=== PATIENT | male | born 1980 | race Caucasian/White ===

== ENCOUNTER 2018-03-23 21:34 | Inpatient (IN) | payer OTHER ==
[~2018-03-23] VITALS: Ht 180.3 cm; Wt 75.7 kg
[2018-03-23] MEDS ORDERED: DIPHTH/TETANUS/ACEL PERTUSSIS (BOOSTER) 0.5 ML VIAL/PFS IM ONE (21:37)
[2018-03-23] MEDS ORDERED: ceFAZolin 2 GM PREMIX 50 ML ONE (21:37)
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
[2018-03-23 22:13] LABS: AUTOMATED NEUTROPHIL # 5.4 TH/MM3 (1.8-7.7); BASOPHIL # 0.1 TH/MM3 (0-0.2); EOSINOPHIL # 0.1 TH/MM3 (0-0.4); EOSINOPHIL % 1.2 % (0.0-4.0); HEMATOCRIT 36.1 % (39.0-51.0); HEMOGLOBIN 12.2 GM/DL (13.0-17.0); LYMPH % 27.5 % (9.0-44.0); LYMPHOCYTE # 2.5 TH/MM3 (1.0-4.8); MEAN CELL VOLUME 83.6 FL (80.0-100.0); MEAN CORPUSCULAR HEMOGLOBIN 28.3 PG (27.0-34.0); MEAN CORPUSCULAR HGB CONC 33.9 % (32.0-36.0); MEAN PLATELET VOLUME 7.8 FL (7.0-11.0); MONO % 10.6 % (0.0-8.0); NEUT % 59.7 % (16.0-70.0); PLATELET COUNT 304 TH/MM3 (150-450); RED BLOOD COUNT 4.32 MIL/MM3 (4.50-5.90); RED CELL DISTRIBUTION WIDTH 15.1 % (11.6-17.2); WHITE BLOOD COUNT 9.1 TH/MM3 (4.0-11.0)
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
[2018-03-23] MEDS ORDERED: IOHEXOL 350 MG/ML 10 ML VIAL (for RAD DIAG) IVCONTRAST ONE (22:29)
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
[2018-03-23 22:38] LABS: INTERNATIONAL NORMALIZED RATIO 1.1 RATIO; PROTHROMBIN TIME - PATIENT 11.3 SEC (9.8-11.6)
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
[2018-03-23] MEDS ORDERED: MORPHINE SULFATE 4 MG/ML INJ IV PUSH ONE (23:15)
[2018-03-23] MEDS ORDERED: HYDROmorphone HCL PF 1 MG/ML VIAL IV PUSH ONE (23:30)
[2018-03-23] MEDS ORDERED: diphenhydrAMINE HCL 50 MG/ML VIAL IV PUSH ONE (23:45)
[2018-03-23] MEDS ORDERED: HYDROmorphone HCL PF 2 MG/ML VIAL IV PUSH ONE (23:45)
[2018-03-24] VITALS: BP 137/68; PULSE 72; RESP 20; O2SAT 96
[2018-03-24] MEDS ORDERED: HYDROmorphone HCL PF 1 MG/ML VIAL IV PUSH PRN
[2018-03-24] MEDS ORDERED: ACETAMINOPHEN/HYDROcodone 325 MG/5 MG TAB PO PRN
[2018-03-24] MEDS ORDERED: SODIUM CHLORIDE 0.9% FLUSH 10 ML FLUSH IV FLUSH PRN
[2018-03-24] MEDS: SODIUM CHLOR 0.9% 1000 ML INJ 1,000 ML IV SCH ×2 (01:45→09:49)
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
[2018-03-24 06:48] VITALS: BP 132/66; PULSE 70; RESP 20; O2SAT 94
[2018-03-24] MEDS ORDERED: ONDANSETRON ODT 4 MG TAB PO PRN (07:00)
[2018-03-24] MEDS ORDERED: HYDROmorphone HCL PF 0.5 MG/0.5 ML SYRINGE IV PUSH PRN (08:45)
[2018-03-24] MEDS: SODIUM CHLORIDE 0.9% FLUSH 10 ML FLUSH IV FLUSH SCH ×2 (09:00→21:34)
[2018-03-24] MEDS ORDERED: FAMOTIDINE 20 MG/2 ML VIAL IV PUSH SCH (09:00)
[2018-03-24 09:04] VITALS: BP 168/77; PULSE 51; RESP 18; O2SAT 95
[2018-03-24] MEDS ORDERED: GENTAMICIN SULFATE 80 MG/2 ML VIAL ONE (10:51)
[2018-03-24] MEDS ORDERED: LIDOCAINE HCL 1% PF 5 ML SYRINGE OTHER ONE (12:00)
[2018-03-24] MEDS ORDERED: GLYCOPYRROLATE 1 MG/5 ML SYRINGE IV PUSH ONE (12:00)
[2018-03-24] MEDS ORDERED: PROPOFOL 200 MG/20 ML AMP IV ONE (12:00)
[2018-03-24] MEDS ORDERED: LACTATED RINGER'S 1000 ML INJ 1,000 ML IV ONE (12:00)
[2018-03-24] MEDS ORDERED: ROCURONIUM INJ 50 MG/5 ML SYRINGE IV PUSH ONE (12:00)
[2018-03-24] MEDS ORDERED: ONDANSETRON HCL 4 MG/2 ML VIAL IV ONE (12:00)
[2018-03-24] MEDS ORDERED: NEOSTIGMINE 5 MG/5 ML SYRINGE IV PUSH ONE (12:00)
[2018-03-24] MEDS ORDERED: VANCOMYCIN HCL 1000 MG VIAL ONE ×2 (12:55→15:18)
[2018-03-24] MEDS ORDERED: ceFAZolin 2 GM PREMIX 50 ML ONE ×2 (12:55→15:18)
[2018-03-24] MEDS ORDERED: ACETAMINOPHEN 1000 MG/100 ML 100 ML IV ONE (14:31)
[2018-03-24] MEDS ORDERED: HYDROmorphone HCL PF 2 MG/ML VIAL ONE (14:31)
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
[2018-03-24] MEDS ORDERED: DEXT 5%-NACL 0.45% 1000 ML INJ 1,000 ML IV SCH (15:01)
[2018-03-24] MEDS ORDERED: ENDO10TA8 PO (15:05)
[2018-03-24] MEDS ORDERED: ENOX40IN SQ (15:05)
[2018-03-24] MEDS ORDERED: ASPI-146 PO (15:05)
--- NOTE | 2018-03-24 15:07 | PD.OP ---
cc: Kodi Sánchez MD Operative Report Date of Surgery: March 24, 2018 Preoperative Diagnosis: Right comminuted tibia and fibula fracture Postoperative Diagnosis: Same Procedure: Right tibia fracture treatment with intramedullary nail Anesthesia: General Surgeon: Kodi Sánchez Skewer Up(s): WADR Jarrett The surgical procedure was assisted by my Advanced Registered Nurse Practitioner. My MARKETING SERVICES VICE PRESIDENT presence was necessary throughout this case for the manipulation and positioning of the surgical extremity. My MARKETING SERVICES VICE PRESIDENT was assisting me throughout the duration of this procedure. The skill set of an Advance Registered Nurse Practitioner was medically necessary to complete this procedure. During the surgical case, the assistant professor surgical technology was working at the back table and the Advance Registered Nurse Practitioner was directly assisting me. Operation and Findings: Implants: Synthes tibal nail, size: 9 x 3 60 Estimated blood loss: 100 cc The patient received intravenous vancomycin and Ancef. After the appropriate anesthesia was administered, the patient was prepped and draped in the supine position in the usual sterile fashion. Skin assessment showed no lacerations about the fracture site, but they are worse areas of abrasions but these were not full-thickness. There was mild swelling noted to the leg. We made incision proximal to the patella. We carefully dissected down to the quadriceps tendon. An in-line longitudinal split to the quadriceps tendon was completed. The capsule of the knee was entered. We placed the smooth trocar within the knee joint down to the proximal tibia, protecting the patella and trochlea during the case. We then reduced the tibia fracture manually and under fluoroscopic imaging. A ball-tipped guidewire was placed into the tibial shaft, passing the fracture site. This was placed down to the distal physeal line of the tibia. We then sequentially reamed the tibia to 1 mm larger than the implanted tibial nail. We obtained good cortical chatter. We measured the appropriate length for the tibial nail. We then passed the tibial nail into the medullary canal of the tibia. The nail was secured proximally with 1 screw(s), using the associated jig as a guide .We used the perfect robinson technique distally to visualize the distal tibial screw holes. We placed 3 screws distally. We thoroughly irrigated the incisions including a lavage of the arthrotomy site proximally. The quadriceps split was closed with a #1 Vicryl. The remaining incisions were closed with #2-0 Vicryl, followed by diane. A well-padded splint was required to provide further stabilization to the leg. The postoperative plan is for nonweightbearing. Chemical DVT prophylaxis will be performed with Lovenox followed by aspirin. Kodi Sánchez MD March 24, 2018 15:07
[2018-03-24] MEDS ORDERED: MIDAZOLAM HCL 2 MG/2 ML VIAL ONE (15:13)
[2018-03-24] MEDS ORDERED: NURSING INFORMATION XX PRN (15:15)
[2018-03-24] MEDS ORDERED: oxyCODONE/ACETAMINOPHEN 10 MG/325 MG TAB PO PRN (15:15)
[2018-03-24] MEDS ORDERED: MAGNESIUM HYDROXIDE SUSP 30 ML CUP PO PRN (15:15)
[2018-03-24] MEDS ORDERED: NALOXONE HCL 0.4 MG/ML AMP IV PUSH PRN ×2 (15:15)
[2018-03-24] MEDS ORDERED: PHARMACY INFORMATION XX ONE (15:15)
[2018-03-24] MEDS ORDERED: ONDANSETRON HCL 4 MG/2 ML VIAL IVP PRN (15:15)
[2018-03-24] MEDS ORDERED: diphenhydrAMINE HCL 25 MG CAP PO PRN (15:15)
[2018-03-24] MEDS ORDERED: Post-op Orders (for Pharmacy) XX ONE ×2 (15:15)
--- NOTE | 2018-03-24 15:54 | RADRPT ---
EXAM DATE/TIME: 03/24/2018 15:14 [facility] COMPARISON: No previous studies available for comparison. INDICATIONS : Fracture. MEDICAL HISTORY : None. SURGICAL HISTORY : None. ENCOUNTER: Initial ACUITY: 1 day PAIN SCORE: 6/10 LOCATION: Left Knee. FINDINGS: Four view examination of the left knee demonstrates no evidence of fracture or dislocation. Bony min eralization is normal. The articular surfaces are intact. The suprapatellar soft tissues have a nor mal configuration. CONCLUSION: Unremarkable examination of the left knee. Shlomo Arana MD on March 24, 2018 at 15:45 Board Certified Radiologist. This report was verified electronically.
[2018-03-24] MEDS ORDERED: KETAMINE HCL 50 MG/5 ML SYRINGE ONE (16:01)
[2018-03-24] MEDS ORDERED: MORPHINE SULFATE 4 MG/ML INJ ONE (16:10)
[2018-03-24] MEDS ORDERED: *morphine SULFATE 4 MG/ML PERIprocedure ONLY ONE (16:31)
--- NOTE | 2018-03-24 16:37 | PD.ORT.PN ---
Objective Vitals Vital Signs Date Time Temp Pulse Resp B/P (MAP) Pulse Ox O2 Delivery O2 Flow Rate FiO2 03/24/18 12:26 03/24/18 09:04 51 18 168/77 (107) 95 Room Air 03/24/18 06:48 70 20 132/66 (88) 94 03/24/18 02:01 20 03/24/18 02:01 20 03/24/18 00:00 72 20 137/68 (91) 96 I/O 03/23/18 03/23/18 03/23/18 03/24/18 03/24/18 03/24/18 07:00 15:00 23:00 07:00 15:00 23:00 Intake Total 1000 ml 1150 ml Output Total 100 ml Balance 1000 ml 1050 ml Intake IV Total 1000 ml 50 ml Other 1100 ml Output Estimated Blood Loss 100 ml Result Diagram: 03/23/182141 Other Results Laboratory Tests Test 03/23/18 21:42 Prothromb Time International Ratio 1.1 RATIO Prothrombin Time 11.3 SEC (9.8-11.6) Imaging Last 24 hours Impressions Knee X-Ray 03/24/18 0000 Signed Impressions: Service Date/Time: Saturday, March 24, 2018 15:14 - CONCLUSION: Unremarkable examination of the left knee. Shlomo Arana MD Pelvis X-Ray 03/23/182139 Signed Impressions: Service Date/Time: March 21:34 - CONCLUSION: No acute disease. Sergei Cam MD Maxillofacial CT 03/23/182139 Signed Impressions: Service Date/Time: March 21:55 - CONCLUSION: No facial fracture. Sergei Cam MD Head CT 03/23/182139 Signed Impressions: Service Date/Time: March 21:55 - CONCLUSION: No acute disease. Sergei Cam MD Chest X-Ray 03/23/182139 Signed Impressions: Service Date/Time: March 21:34 - CONCLUSION: No acute disease. Sergei Cam MD Chest CT 03/23/182139 Signed Impressions: Service Date/Time: March 22:09 - CONCLUSION: 1. No acute thoracic process. Sergei Cam MD Cervical Spine CT 03/23/182139 Signed Impressions: Service Date/Time: March 21:55 - CONCLUSION: No fracture or subluxation. Sergei Cam MD Abdomen/Pelvis CT 03/23/182139 Signed Impressions: Service Date/Time: March 22:09 - CONCLUSION: 1. No abdominal visceral injury Sergei Cam MD Assessment & Plan Assessment and Plan POD #0: Right tibia fracture with treatment with IMN 1. NWB RLE 2. Lovenox followed by ASA for DVT prophylaxis 3. Ice to the RLE PRN 4. Maintain splint and dressing until f/u in the office 5. F/U in the office with Dr. Sánchez or WARD Serna in 1-2 weeks. Preston Cazares March 24, 2018 16:37
[2018-03-24] MEDS ORDERED: MEPERIDINE HCL 25 MG/ML VIAL ONE (16:39)
[2018-03-24] MEDS ORDERED: GLYCOPYRROLATE 0.2 MG/ML VIAL ONE (16:44)
[2018-03-24] MEDS ORDERED: GLYCOPYRROLATE 0.2 MG/ML VIAL IV ONE (16:45)
[2018-03-24] MEDS ORDERED: *morphine SULFATE 10 MG/ML PERIprocedure ONLY ONE (16:47)
[2018-03-24] MEDS: *HYDROmorphone PF 0.5 MG/0.5 ML PERIprocedure ONLY ONE ×2 (16:55→17:05)
[2018-03-24] MEDS ORDERED: *HYDROmorphone PF 0.5 MG/0.5 ML PERIprocedure ONLY ONE ×2 (16:55→17:18)
[2018-03-24 17:00] VITALS: BP 171/91; PULSE 48; RESP 16; TEMP 97.6; O2SAT 100
[2018-03-24] MEDS: oxyCODONE/ACETAMINOPHEN 10 MG/325 MG TAB PO PRN (17:05)
[2018-03-24] MEDS ORDERED: DO NOT ADM ANY ANTICOAGULANT DRUGS PRN (17:15)
[2018-03-24] MEDS ORDERED: oxyCODONE/ACETAMINOPHEN 5 MG/325 MG TAB PO PRN (17:15)
[2018-03-24] MEDS ORDERED: WALKER WHEELS/F1 MIS (17:17)
--- NOTE | 2018-03-24 17:20 | RADRPT ---
EXAM DATE/TIME: 03/24/2018 15:44 [facility] COMPARISON: No previous studies available for comparison. INDICATIONS : IM nicole right tib fib. MEDICAL HISTORY : Fractures fibula and tibia SURGICAL HISTORY : None. ENCOUNTER: Subsequent ACUITY: 2 days PAIN SCORE: Non-responsive. LOCATION: Right Tib fib. FINDINGS: 6 digital images are submitted. Reveal IM nicole fixation of tib-fib fracture with satisfactory reductio n fragments and latter day of anatomic alignment. The IM nicole is secured proximally with at least one screw and distally with at least 3 screws. CONCLUSION: Satisfactory operative appearance Shlomo Arana MD on March 24, 2018 at 17:16 Board Certified Radiologist. This report was verified electronically.
[2018-03-24] MEDS: MORPHINE SULFATE 4 MG/ML INJ IV PUSH PRN (17:50)
[2018-03-24 17:57] VITALS: BP 171/91; PULSE 60; RESP 20; TEMP 97.6; O2SAT 92
[2018-03-24 20:00] VITALS: BP 150/76; PULSE 50; RESP 18; TEMP 97.9; O2SAT 100
[2018-03-24] MEDS: DOCUSATE SODIUM 50 MG/SENNA 8.6 MG TAB PO SCH (21:00)
[2018-03-24] MEDS: FAMOTIDINE 20 MG TAB PO SCH (21:00)
[2018-03-24] MEDS: METHOCARBAMOL 500 MG TAB PO SCH (22:00)
[2018-03-25] VITALS: BP 124/66; PULSE 55; RESP 18; TEMP 98.9; O2SAT 100
[2018-03-25] MEDS: oxyCODONE/ACETAMINOPHEN 10 MG/325 MG TAB PO PRN ×4 (01:31→16:38)
[2018-03-25] MEDS: SODIUM CHLOR 0.9% 1000 ML INJ 1,000 ML IV SCH ×3 (01:55→15:51)
[2018-03-25] MEDS: MORPHINE SULFATE 4 MG/ML INJ IV PUSH PRN ×2 (02:50→07:53)
[2018-03-25 04:00] VITALS: BP 146/80; PULSE 54; RESP 20; TEMP 100.7; O2SAT 100
[2018-03-25] MEDS: METHOCARBAMOL 500 MG TAB PO SCH ×2 (05:19→13:23)
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
[2018-03-25 07:31] LABS: HEMATOCRIT 33.1 % (39.0-51.0); HEMOGLOBIN 11.2 GM/DL (13.0-17.0)
[2018-03-25 08:00] VITALS: BP 156/79; PULSE 52; RESP 16; TEMP 98; O2SAT 98
[2018-03-25] MEDS: SODIUM CHLORIDE 0.9% FLUSH 10 ML FLUSH IV FLUSH SCH (08:35)
[2018-03-25] MEDS: DOCUSATE SODIUM 50 MG/SENNA 8.6 MG TAB PO SCH (08:35)
[2018-03-25] MEDS: FAMOTIDINE 20 MG TAB PO SCH (08:35)
[2018-03-25] MEDS ORDERED: MULTIVITAMINS/MINERALS THERAPEUTIC TAB PO SCH (09:00)
[2018-03-25] MEDS ORDERED: ENDO10TA8 PO (09:11)
[2018-03-25] MEDS ORDERED: ENOX40P SQ (09:11)
[2018-03-25] MEDS ORDERED: ASPI325T27 PO (09:11)
[2018-03-25] MEDS: GABAPENTIN 300 MG CAP PO SCH ×2 (11:28→13:23)
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
[2018-03-25] MEDS ORDERED: ENOXAPARIN SODIUM 40 MG/0.4 ML SYRINGE SQ SCH (15:15)
== END 2018-03-25 18:01 | disposition home or self-care (01) | DRG 494 ==
LOC: NEPI 21:34 → NEDA 23:08 → EDBD 23:08 → NEDH 03-24 06:32 → NEDA 03-24 09:10 → N06B 03-24 17:47
PROVIDERS: ADMIT Surgery; ATTEND Surgery
PROC: 0QSG04Z Reposition Right Tibia with Internal Fixation Device, Open Approach (ICD-10-PCS; principal; 2018-03-24 14:33)
DX: S82.251A Displaced comminuted fracture of shaft of right tibia, initial encounter for closed fracture (principal); F11.90 Opioid use, unspecified, uncomplicated; S82.451A Displaced comminuted fracture of shaft of right fibula, initial encounter for closed fracture; S80.02XA Contusion of left knee, initial encounter; F14.90 Cocaine use, unspecified, uncomplicated; V03.90XA Pedestrian on foot injured in collision with car, pick-up truck or van, unspecified whether traffic or nontraffic accident, initial encounter; Z87.891 Personal history of nicotine dependence; Z59.0 Homelessness
CPT/HCPCS: 70450; 70486; 71045; 71260; 72125; 72170; 73564; 73590; 74177; 75635; 76000; 80048; 80307; 85014; 85018; 85025; 85610; 85730; 86850; 86900; 86901; 90471; 90715; 94150; C1713; E0113; J0131; J0690; J1170; J1200; J1580; J1650; J2175; J2250; J2270; J2405; J2710; J3010; J3370; J7030; J7120; Q9967